=== PATIENT | male | born 1960 | race Caucasian/White ===

== ENCOUNTER 2020-06-24 07:56 | Inpatient (IN) | payer OTHER ==
[2020-06-18 11:24] LABS: BASOPHILS % (AUTO) 0.7 % (0-1); EOSINOPHILS # (AUTO) 0.3 X10'3 (0-0.9); EOSINOPHILS % (AUTO) 3.9 % (0-6); LYMPHOCYTES # (AUTO) 1.6 X10'3 (1.1-4.8); LYMPHOCYTES % (AUTO) 23.8 % (21-51); MEAN CORPUSCULAR HEMOGLOBIN 31.4 PG (27.0-31.0); MEAN CORPUSCULAR HGB CONC 34.4 g/dL (33.0-36.5); MEAN CORPUSCULAR VOLUME 91.3 FL (78-98); MEAN PLATELET VOLUME 8.3 FL (7.4-10.4); MONOCYTES # (AUTO) 0.4 X10'3 (0-0.9); MONOCYTES % (AUTO) 6.5 % (2-12); NEUTROPHILS # (AUTO) 4.5 X10'3 (1.8-7.7); NEUTROPHILS % (AUTO) 65.1 % (42-75); PRE OP HEMATOCRIT 41.4 % (42.0-52.0); PRE OP HEMOGLOBIN 14.3 g/dL (14.0-17.9); PRE OP PLATELET COUNT 278 X10'3 (140-440); RED BLOOD COUNT 4.53 X10'6 (4.70-6.10); RED CELL DISTRIBUTION WIDTH 13.5 % (11.5-14.5)
[2020-06-18 11:38] LABS: ALBUMIN 4.1 G/DL (3.4-5.0); ALBUMIN/GLOBULIN RATIO 1.1 (1.1-1.5); ALKALINE PHOSPHATASE 100 IU/L (46-116); BLOOD UREA NITROGEN 16 MG/DL (7-18); BUN/CREATININE RATIO 16.7 (5.4-32.0); CALCIUM 9.3 MG/DL (8.5-10.1); CHLORIDE 106 MMOL/L (99-107); CREATININE 0.96 MG/DL (0.60-1.10); PRE OP ALT 54 U/L (30-65); PRE OP ANION GAP 8 (8-16); PRE OP AST 22 U/L (10-37); PRE OP BILIRUB, TOTAL 0.5 MG/DL (0.0-1.0); PRE OP GLUCOSE 121 MG/DL (70-104); PRE OP POTASSIUM 3.7 MMOL/L (3.4-5.1); PRE OP SODIUM 144 MMOL/L (135-145); TOTAL CARBON DIOXIDE 30.1 MMOL/L (24-32); TOTAL PROTEIN 7.7 G/DL (6.4-8.2); eGFR 80 ML/MIN
[~2020-06-24] VITALS: Ht 157.5 cm; Wt 86.2 kg
[2020-06-24] VITALS (19 sets, daily range): BP systolic 95–154; BP diastolic 37–77
[~2020-06-24 07:56] MED LIST: CHOL20004 PO; DOCUMENT DATE & TIME OF BETA-BLOCKER PO ONE; ESZO3TAB37 PO; LIDO700A32 TOP; METO1TAB35 PO; NORMAL SALINE IV ONE; SERT50TA PO; TRANEXAMIC ACID IV ONE; ceFAZolin 2gm in dextrose, iso 50 ML IV ONE; famotidine 20mg tablet PO ONE; metoprolol tartrate 25mg tablet PO PRN; ringers solution, lacted 1,000 ML IV SCH; vancomycin 1,500 MG in NS 300ml IV soln IV ONE
[2020-06-24] MEDS ORDERED: ROPIVAcaine 0.2% (10 MG/5 ML) BOLUS INJECTION INTERSCALE PRN (09:45)
[2020-06-24] MEDS ORDERED: labetalol 20mg/4ml (5mg/ml) syringe IV PRN (09:45)
[2020-06-24] MEDS ORDERED: hydrALAZINE 20mg/ml inj. IV PRN (09:45)
[2020-06-24] MEDS ORDERED: morphine 2 MG/ML inj. syringe IV PRN (09:45)
[2020-06-24] MEDS ORDERED: fentaNYL/PF 50MCG/1 ML 2ML syringe IV PRN ×2 (09:45)
[2020-06-24] MEDS ORDERED: ringers solution, lacted 1,000 ML IV SCH (09:45)
[2020-06-24] MEDS ORDERED: morphine 4 MG/ML inj SYRINge IV PRN (09:45)
[2020-06-24] MEDS ORDERED: ondansetron/PF 4mg/2ml inj IV PRN ×2 (09:45→13:00)
[2020-06-24] MEDS ORDERED: sevoflurane 250ml liquid IH ONE (10:17)
[2020-06-24] MEDS ORDERED: dexamethasone sod phosphate 10mg/ml inj ONE (10:17)
[2020-06-24] MEDS ORDERED: MIDAZolam 5mg/5ml vial ONE (10:20)
[2020-06-24] MEDS ORDERED: fentaNYL/PF 50MCG/1 ML 2ML syringe ONE ×2 (10:20→11:49)
[2020-06-24] MEDS ORDERED: atropine 0.4 mg/ml 20ml vial ONE (10:28)
[2020-06-24] MEDS ORDERED: LIDOcaine 2% (20mg/ml) 5ml vial ONE (11:03)
[2020-06-24] MEDS ORDERED: ROPIVAcaine 0.5% (5mg/ml) 30ml vial ONE ×2 (11:03→11:08)
[2020-06-24] MEDS ORDERED: ondansetron/PF 4mg/2ml inj ONE (11:03)
[2020-06-24] MEDS ORDERED: propofol inj 20 ML IV ONE (11:03)
[2020-06-24] MEDS ORDERED: ketorolac trometh. 30mg/ml inj. ONE ×2 (11:08→11:47)
--- NOTE | 2020-06-24 12:52 | NUR ---
RECEIVED FROM OR VIA BED WITH OHTF ACCOMPANIED BY ANESTHESIOLOGIST DR BANUELOS, REPORT GIVEN. PT DROWSY, STARTLES EASILY AND IS WILDLY TURNING, THRASHING, AND PULLING AT DRESSING. ANESTHESIA IS AWARE. REQUIRES CONSTANT REMINDER TO GUARD SURGICAL SITE.20 GAUGE PIV R HAND PATENT AND RUNNING LR AT 100 ML/HR..L SHOULDER ISLAND DRESSING WITH SCANT SS DRAINAGE. SHOULDER WRAP, POWDER PACK AND SLING IN PLACE. PPULSES PALPABLE, BRISK CAP REFILL, SKIN PINK AND WARM, VSS, SCDS APPLIED.
[2020-06-24] MEDS ORDERED: diphenhydrAMINE 25mg capsule PO PRN ×2 (13:00)
[2020-06-24] MEDS ORDERED: zolpidem 5mg tablet PO PRN (13:00)
[2020-06-24] MEDS ORDERED: HYDROmorphone 1 mg/ml syringe IV PRN (13:00)
[2020-06-24] MEDS ORDERED: acetaminophen 325mg tablet PO PRN (13:00)
[2020-06-24] MEDS ORDERED: oxyCODONE IR 5mg (immed. release) tablet PO PRN ×2 (13:00)
[2020-06-24] MEDS ORDERED: bisacodyl 10mg suppository rectal RC PRN (13:00)
[2020-06-24] MEDS ORDERED: magnesium hydroxide 30ml (MOM) UD suspension PO PRN (13:00)
[2020-06-24] MEDS ORDERED: HYDROmorphone inj. 0.5 MG/0.5 ML DISP.SYRIN IV PRN (13:00)
[2020-06-24] MEDS: ROPIVAcaine 0.2%/PF PUMP/bolus 550 ML INTERSCALE SCH ×2 (13:05→14:15)
--- NOTE | 2020-06-24 14:12 | NUR ---
TRANSPORTED VIA BED WITH OHTF ACCOMPANIED BY MYSELF, REPORT GIVEN. PT AWAKE AND ALERT AND DENIES PAIN .20 GAUGE PIV R HAND PATENT AND RUNNING LR AT 100 ML/HR..L SHOULDER ISLAND DRESSING WITH SCANT SS DRAINAGE. SHOULDER WRAP, POWDER PACK AND SLING IN PLACE. PPULSES PALPABLE, BRISK CAP REFILL, SKIN PINK AND WARM, VSS, SCDS APPLIED. LEFT IN CARE OF [facility]TH[facility].
[2020-06-24] MEDS ORDERED: tranexamic acid inj. 860 MG in normal saline 100ml IV soln 100 ML IV ONE (16:00)
[2020-06-24] MEDS: acetaminophen 325mg tablet PO SCH ×2 (16:10→19:16)
[2020-06-24] MEDS: ceFAZolin/D5W- 1GM premix 50 ML IV SCH (16:11)
--- NOTE | 2020-06-24 18:33 | NUR ---
Problems reprioritized. Patient report given, questions answered & plan of care reviewed with SARI LARSEN.
[2020-06-24] MEDS: potassium cl 20mEq in 1/2 NS 1,000 ML IV SCH ×2 (19:01→19:16)
[2020-06-24] MEDS ORDERED: vancomycin/NS 1 GM ADD-VANTAGE 250 ML IV SCH (20:00)
[2020-06-24] MEDS ORDERED: sennosides 8.6mg tablet PO SCH (21:00)
[2020-06-24] MEDS ORDERED: LUNESTA 3MG TAB PO PRN (21:00)
[2020-06-25] MEDS: ceFAZolin/D5W- 1GM premix 50 ML IV SCH (00:09)
[2020-06-25 02:00] VITALS: BP 112/45
[2020-06-25] MEDS: acetaminophen 325mg tablet PO SCH ×2 (02:08→09:42)
[2020-06-25] MEDS: potassium cl 20mEq in 1/2 NS 1,000 ML IV SCH (05:00)
[2020-06-25 05:57] LABS: BASOPHILS % (AUTO) 0.1 % (0-1); EOSINOPHILS % (AUTO) 0 % (0-6); HEMATOCRIT 32.1 % (42.0-52.0); HEMOGLOBIN 10.9 g/dl (14.0-17.9); LYMPHOCYTES # (AUTO) 0.7 X10'3 (1.1-4.8); LYMPHOCYTES % (AUTO) 6.1 % (21-51); MEAN CORPUSCULAR HEMOGLOBIN 31.2 PG (27.0-31.0); MEAN CORPUSCULAR HGB CONC 34.1 g/dL (33.0-36.5); MEAN CORPUSCULAR VOLUME 91.5 FL (78-98); MEAN PLATELET VOLUME 8.9 FL (7.4-10.4); MONOCYTES # (AUTO) 0.8 X10'3 (0-0.9); MONOCYTES % (AUTO) 6.4 % (2-12); NEUTROPHILS # (AUTO) 10.6 X10'3 (1.8-7.7); NEUTROPHILS % (AUTO) 87.4 % (42-75); PLATELET COUNT 212 X10'3 (140-440); RED BLOOD COUNT 3.51 X10'6 (4.70-6.10); RED CELL DISTRIBUTION WIDTH 13.1 % (11.5-14.5); WHITE BLOOD COUNT 12.2 X10'3 (4.5-11.0)
--- NOTE | 2020-06-25 05:59 | NUR ---
reported to days. noted pt hopes to go home this am.
[2020-06-25 06:00] VITALS: BP 122/60
[2020-06-25 06:13] LABS: ANION GAP 10 (8-16); CHLORIDE 105 MMOL/L (99-107); POTASSIUM 3.8 MMOL/L (3.5-5.1); SODIUM 139 MMOL/L (135-145); TOTAL CARBON DIOXIDE 23.8 MMOL/L (24-32)
--- NOTE | 2020-06-25 06:43 | NUR ---
Patient in room [facility] 4023B. I have received report from SARI LARSEN and had the opportunity to ask questions and assume patient care.
[2020-06-25] MEDS ORDERED: vitamin D (cholecalciferol) 1,000 unit tablet PO SCH (08:00)
[2020-06-25] MEDS ORDERED: HYDROchlorothiazide 12.5mg capsule PO SCH (08:00)
[2020-06-25] MEDS ORDERED: sertraline 50mg tablet PO SCH (08:00)
[2020-06-25] MEDS ORDERED: metoprolol tartrate 25mg tablet PO SCH (08:00)
[2020-06-25] MEDS ORDERED: aspirin 325mg tablet PO SCH (08:30)
[2020-06-25 10:00] VITALS: BP 135/60
[2020-06-25] MEDS ORDERED: ASPI-1 PO (11:10)
[2020-06-26] MEDS ORDERED: acetaminophen 325mg tablet PO PRN (13:00)
== END 2020-06-25 12:14 | disposition home or self-care (01) | DRG 483 ==
LOC: UNDOADMIN 07:56 → PAS IN 07:56 → EDSTATUS 13:15 → ORTHO 4S 14:10 → PAS IN 14:10 → ORTHO 4S 16:06
PROVIDERS: ADMIT Orthopaedic Surgery; ATTEND Orthopaedic Surgery
PROC: 0LS40ZZ Reposition Left Upper Arm Tendon, Open Approach (ICD-10-PCS; 2020-06-24)
PROC: 5A09357 Assistance with Respiratory Ventilation, Less than 24 Consecutive Hours, Continuous Positive Airway Pressure (ICD-10-PCS; 2020-06-24)
PROC: 3E0T3BZ Introduction of Anesthetic Agent into Peripheral Nerves and Plexi, Percutaneous Approach (ICD-10-PCS; 2020-06-24)
PROC: 0RRK00Z Replacement of Left Shoulder Joint with Reverse Ball and Socket Synthetic Substitute, Open Approach (ICD-10-PCS; principal; 2020-06-24 10:17)
DX: M19.012 Primary osteoarthritis, left shoulder (principal); D62 Acute posthemorrhagic anemia; M75.122 Complete rotator cuff tear or rupture of left shoulder, not specified as traumatic; G47.30 Sleep apnea, unspecified; F32.9 Major depressive disorder, single episode, unspecified; M75.22 Bicipital tendinitis, left shoulder; M65.812 Other synovitis and tenosynovitis, left shoulder; Z79.899 Other long term (current) drug therapy
CPT/HCPCS: 36415; 80051; 80053; 82948; 85025; 87081; 87635; 97110; 97161; 97530; A4565; A4618; A7000; C1776; G0378; J0461; J0690; J1100; J1885; J2001; J2250; J2405; J2704; J2795; J3010; J3370; J3480; J7040; J7120; Q0163